=== PATIENT | male | born 1955 | race Caucasian/White ===

== ENCOUNTER → 2016-06-20 | Outpatient (CLI) | payer BC ==
[~2016-06-20] MED LIST: ALDACTONE50 MG PO; CATAPRES0.2 MG PO; DIOVAN320 MG PO; LIPITOR10 MG PO; LOPRESSOR25 MG PO; LOPRESSOR50 MG PO; NORCO 325-5 MG1 TAB PO
== END | disposition short-term general hospital (02) ==
LOC: CLONCO 08:34
DX: C19 Malignant neoplasm of rectosigmoid junction (principal); K76.9 Liver disease, unspecified; Z93.3 Colostomy status

== ENCOUNTER → 2016-09-19 | Outpatient (CLI) | payer BC | END | disposition short-term general hospital (02) | LOC: CLONCO 08:31 | DX: C19 Malignant neoplasm of rectosigmoid junction (principal) ==

== ENCOUNTER → 2016-12-20 | Outpatient (CLI) | payer BC | END | disposition short-term general hospital (02) | LOC: CLONCO 12-19 10:55 | DX: Z08 Encounter for follow-up examination after completed treatment for malignant neoplasm (principal); Z85.038 Personal history of other malignant neoplasm of large intestine ==